=== PATIENT | male | born 1985 ===

== ENCOUNTER 2019-06-01 03:56 | Emergency (ER) | payer OTHER ==
[~2019-06-01] VITALS: Ht 182.9 cm; Wt 115.1 kg
[2019-06-01] MEDS ORDERED: LORazepam 1MG TABLET ONE (04:28)
[2019-06-01] MEDS ORDERED: LORazepam 1MG TABLET PO ONE (04:30)
[2019-06-01 05:03] VITALS: BP 149/100
== END 2019-06-01 06:10 | disposition home or self-care (01) ==
LOC: ED 05:28
DX: F41.1 Generalized anxiety disorder (principal); R07.89 Other chest pain; R06.02 Shortness of breath
CPT/HCPCS: 71046; 93005; 99283